=== PATIENT | male | born 1935 | race Caucasian/White ===

== ENCOUNTER → 2016-10-31 | Outpatient (CLI) | payer OTHER, MEDICARE ==
[~2016-10-31] MED LIST: GADOBUTROL 10 ML VIAL IVP ONE
--- NOTE | 2016-10-31 14:52 | MR ---
MRI of the Head (Before and Following Gadolinium) Clinical Indications: Melanoma staging. Technique: T1-weighted images were obtained sagittally and axially. Diffusion-weighted, inversion r ecovery, and fast T2-weighted axial images were obtained. T1-weighted axial and coronal images were obtained after intravenous administration of 6.5 mL of Gadavist. Findings: Extensive underlying white matter microvascular ischemic gliosis is present in both cerebr al hemispheres. Moderate underlying cerebral and cerebellar atrophy. No evidence of acute cortical is chemia on diffusion-weighted imaging. After intravenous contrast administration, the brain enhances n ormally, without features of atrophy of metastatic disease. Craniocervical junction and skull base appear normal. No evidence of intracranial hemorrhage, mass ef fect, midline shift. Impression: Underlying white matter disease and atrophy, without MRI features of intracranial metasta tic disease..
== END ==
LOC: FIMAGING 08:30
PROVIDERS: ATTEND Internal Medicine Hematology & Oncology
DX: C43.9 Malignant melanoma of skin, unspecified (principal)
CPT/HCPCS: 70553; A9585

== ENCOUNTER 2016-11-16 10:52 | Observation (INO) | payer OTHER, MEDICARE ==
[2016-11-16] MEDS ORDERED: PROPOFOL 200 MG/20 ML VIAL ONE (12:19)
[2016-11-16] MEDS ORDERED: fentaNYL 250 MCG/5 ML INJ ONE (12:19)
[2016-11-16 12:26] LABS: INR 1.23 (0.83-1.16); PROTIME(PATIENT) 15.5 SEC (12.0-15.0)
[2016-11-16] MEDS ORDERED: cefOXitin SODIUM 1 GM in D5W 50 ML IV ONE (12:30)
[2016-11-16] MEDS ORDERED: BUPIVACAINE/EPI 0.5% 30 ML SDV ONE (13:22)
[2016-11-16] MEDS ORDERED: OXYCODONE/APAP 5/325 TAB PO PRN (16:33)
[2016-11-16] MEDS ORDERED: ONDANSETRON 4 MG/2 ML VIAL IVP PRN (16:33)
[2016-11-16] MEDS ORDERED: HYDROmorphONE/DILAUDID 1 MG/ML SYR IVP PRN (16:33)
[2016-11-16] MEDS ORDERED: ATORVASTATIN CALCIUM 20 MG TAB PO SCH (18:00)
[2016-11-16] MEDS ORDERED: NON-FORMULARY NEW DRUG (Simvastatin [Zocor] 40 MG) PO SCH (18:00)
[2016-11-16 19:48] VITALS: RESP 16
[2016-11-17 03:41] VITALS: PULSE 98; TEMP 97.5; O2SAT 93
[2016-11-17 05:58] LABS: HEMATOCRIT 36.6 % (40.0-51.0); HEMOGLOBIN 12.8 g/dL (13.7-17.5); MEAN CELL HEMOGLOBIN 30.6 pg (27.9-34.1); MEAN CELL VOLUME 87.6 fL (81.5-99.8); RED BLOOD CELL COUNT 4.18 10^6/uL (4.40-6.38); RED CELL DISTRIBUTION WIDTH 12.2 % (11.5-15.2)
[2016-11-17] MEDS ORDERED: LEVOTHYROXINE 50 MCG TAB PO SCH (06:00)
[2016-11-17 06:05] LABS: INR 1.29 (0.83-1.16); PROTIME(PATIENT) 16.1 SEC (12.0-15.0)
[2016-11-17 06:06] LABS: APTT 25.1 SEC (23.0-38.0)
--- NOTE | 2016-11-17 08:13 | SOAPPROG ---
SOAP Progress Note Assessment/Plan: Assessment/Plan: 80 Y M s/p transanal resection of malignant rectal mass, POD#1. Pain controlled. Leukocytosis. Unknown origin. Previously elevated. No fevers. Lungs clear. Possibly 2/2 surgical stress? F/u labs as outpatient. Will d/c to home later today. 11/17/16 08:11 Subjective: Minimal pain. No BM. No rectal bleeding. Objective: Vital Signs Temp Pulse Resp BP Pulse Ox 36.4 C 98 16 134/72 H 93 11/17/16 03:39 11/17/16 03:39 11/17/16 03:39 11/17/16 03:39 11/17/16 03:39 Laboratory Results 11/17/16 05:00 11/16/16 11/17/16 11/18/16 05:59 05:59 05:59 Intake Total 1350 Output Total 775 Balance 575 PT 16.1 SEC (12.0-15.0) H 11/17/16 05:00 INR 1.29 (0.83-1.16) H 11/17/16 05:00 alert, oriented mmm lungs clear rrr abd soft ICD10 Worksheet Patient Problems: Problems Problem Status Onset Elevated troponin Acute Laceration of left hand Acute Syncope and collapse Acute
[2016-11-17] MEDS ORDERED: HYDROCHLOROTHIAZIDE 12.5 MG CAP PO SCH (09:00)
[2016-11-17] MEDS ORDERED: PANTOPRAZOLE SODIUM 40 MG TAB PO SCH (09:00)
[2016-11-17] MEDS ORDERED: Memantine Hcl [Namenda Xr] 28 MG PO SCH (09:00)
[2016-11-17] MEDS ORDERED: POTASSIUM CL 10 MEQ TAB PO SCH (09:00)
[2016-11-17] MEDS ORDERED: CHOLECALCIFEROL VIT D3 1,000 UNITS TAB PO SCH (09:00)
[2016-11-17] MEDS ORDERED: CALCIUM CARBONATE 500 MG TAB PO SCH (09:00)
[2016-11-17] MEDS ORDERED: NON-FORMULARY NEW DRUG (Omeprazole [Prilosec 20 Mg] 40 MG) PO SCH (09:00)
[2016-11-17 09:03] VITALS: BP 101/58
--- NOTE | 2016-11-17 10:01 | GOP ---
DATE OF OPERATION: 11/16/2016 SURGEON: Derrick Colbert MD PROCESS ENGINEERING INTERN: Talia Ambrocio ANESTHESIOLOGIST: Dr. Nugent. PREOPERATIVE DIAGNOSIS: Rectal melanoma. POSTOPERATIVE DIAGNOSIS: Rectal melanoma. PROCEDURE PERFORMED: Exam under anesthesia with transanal resection of a rectal melanoma. FINDINGS: Patient was found to have a golf ball size mass in the rectum which was completely pedunculated and mobile. Unfortunately, there were also some satellite lesions seen in the mucosa somewhat cephalad to this area. DESCRIPTION OF PROCEDURE: Patient was taken to the operating room where he received satisfactory general endotracheal anesthesia by Dr. Nugent, placed in lithotomy position, prepped and draped in usual sterile fashion. The anus was infiltrated with 0.5% Marcaine and dilated to 3 fingerbreadths. The mass was completely mobile. It was elevated up. An elliptical incision was made. The mass was elevated up off the sphincter portion. The superficial sphincter was divided as a posterior margin, and the entire mass was excised with an elliptical incision. Hemostasis was easily obtained. Further examination above. There was some additional dark spots that were excised to be sent out for evaluation. After this was completely excised, an additional margin was taken superiorly and laterally and inferiorly. These were all marked and sent to Pathology. Hemostasis was obtained. The mucosa was reapproximated with interrupted 3-0 Vicryl sutures reconstructing the anal canal with care to avoid any stenosis of the rectum. The wound was further infiltrated with 0.5% Marcaine and dressed. He tolerated the procedure well, was taken to the recovery room in good condition. There were no complications. /[id number]/MODL MTDD
[2016-11-17] MEDS ORDERED: WARFARIN SODIUM 2.5 MG TAB PO SCH (16:00)
[2016-11-18] MEDS ORDERED: ENOXAPARIN 40 MG/0.4 ML SYR SC SCH (09:00)
[2016-11-18] MEDS ORDERED: WARFARIN SODIUM 5 MG TAB PO SCH (16:00)
[2016-11-18] MEDS ORDERED: WARFARIN SODIUM 2.5 MG TAB PO SCH (16:00)
== END 2016-11-17 09:37 | disposition home or self-care (01) ==
LOC: F3E 10:52 → INTOOBSV 10:52 → EEVIPCON 12:45 → F1N 16:00
PROVIDERS: ADMIT Surgery; ATTEND Surgery
PROC: 0DBP7ZZ Excision of Rectum, Via Natural or Artificial Opening (ICD-10-PCS; principal; 2016-11-16 12:45)
DX: C21.1 Malignant neoplasm of anal canal (principal); D72.829 Elevated white blood cell count, unspecified; G30.1 Alzheimer's disease with late onset; F02.80 Dementia in other diseases classified elsewhere, unspecified severity, without behavioral disturbance, psychotic disturbance, mood disturbance, and anxiety; E78.00 Pure hypercholesterolemia, unspecified; I10 Essential (primary) hypertension; E03.9 Hypothyroidism, unspecified; N40.0 Benign prostatic hyperplasia without lower urinary tract symptoms; Z86.711 Personal history of pulmonary embolism
CPT/HCPCS: 45171; J0697; J2704; J3010

== ENCOUNTER → 2016-12-24 | Outpatient (CLI) | payer OTHER, MEDICARE | LOC: FIMAGING 19:13 | PROVIDERS: ATTEND Radiology Radiation Oncology | DX: C20 Malignant neoplasm of rectum (principal); N40.0 Benign prostatic hyperplasia without lower urinary tract symptoms | CPT/HCPCS: 72197; A9585 ==

== ENCOUNTER → 2017-03-01 | Outpatient (CLI) | payer OTHER, MEDICARE ==
[2017-03-01 08:44] LABS: GLOMERULAR FILTRATION RATE > 60
== END ==
LOC: FIMAGING 07:50
PROVIDERS: ATTEND Radiology Radiation Oncology
DX: K63.1 Perforation of intestine (nontraumatic) (principal); K68.9 Other disorders of retroperitoneum; Z85.048 Personal history of other malignant neoplasm of rectum, rectosigmoid junction, and anus
CPT/HCPCS: 72197; A9585

== ENCOUNTER → 2017-03-20 | Outpatient (CLI) | payer OTHER, MEDICARE | LOC: FIMAGING 09:30 | PROVIDERS: ATTEND Internal Medicine Hematology & Oncology | DX: Z12.89 Encounter for screening for malignant neoplasm of other sites (principal); C79.9 Secondary malignant neoplasm of unspecified site; R90.82 White matter disease, unspecified | CPT/HCPCS: 70553; A9585 ==

== ENCOUNTER → 2017-09-23 | Outpatient (CLI) | payer SELFPAY | LOC: CIMAGING 14:11 | PROVIDERS: ATTEND Internal Medicine Hospice and Palliative Medicine | DX: Z03.89 Encounter for observation for other suspected diseases and conditions ruled out (principal) | CPT/HCPCS: 74018-PO ==